=== PATIENT | male | born 1955 | race African-American/Black ===

== ENCOUNTER → 2018-03-05 | Outpatient (CLI) | payer BC, OTHER ==
[2018-03-05 10:25] LABS: ABSOLUTE EOSINOPHILS # (AUTO) 0.1 10^3/uL (0.0-0.6); ABSOLUTE LYMPHOCYTES (AUTO) 1.8 10^3/uL (0.5-4.7); ABSOLUTE MONOCYTES (AUTO) 0.5 10^3/uL (0.1-1.4); ABSOLUTE NEUT (AUTO) 2.8 10^3/uL (1.7-8.2); BASOPHILS % (AUTO) 0.5 % (0-2); EOSINOPHILS % (AUTO) 2.6 % (0-6); HEMATOCRIT 40.3 % (37.9-51.0); HEMOGLOBIN 13.7 g/dL (13.5-17.0); LYMPHOCYTES % (AUTO) 33.7 % (13-45); MEAN CORPUSCULAR HEMOGLOBIN 30.4 pg (27.0-33.4); MEAN CORPUSCULAR HGB CONC 33.9 g/dL (32.0-36.0); MEAN CORPUSCULAR VOLUME 90 fl (80-97); MONOCYTES % (AUTO) 9.5 % (3-13); PLATELET COUNT 238 10^3/uL (150-450); SEGMENTED NEUTROPHILS % (AUTO) 53.7 % (42-78); TOTAL CELLS COUNTED % (AUTO) 100 %; WHITE BLOOD COUNT 5.3 10^3/uL (4.0-10.5)
[2018-03-05 10:43] LABS: ANION GAP 13 (5-19); BLOOD UREA NITROGEN 15 mg/dL (7-20); CALCIUM 9.7 mg/dL (8.4-10.2); CARBON DIOXIDE 25 mmol/L (22-30); CHLORIDE 106 mmol/L (98-107); GLUCOSE 98 mg/dL (75-110); POTASSIUM 4.7 mmol/L (3.6-5.0); SODIUM 143.9 mmol/L (137-145)
== END ==
LOC: OD 08:34
PROVIDERS: ATTEND Urology
DX: Z01.818 Encounter for other preprocedural examination (principal); N40.1 Benign prostatic hyperplasia with lower urinary tract symptoms
CPT/HCPCS: 36415; 80048; 85025

== ENCOUNTER → 2018-03-10 | Outpatient (CLI) | payer BC ==
--- NOTE | 2018-03-10 14:03 | EKG REPORT ---
SEVERITY:- NORMAL ECG - SINUS RHYTHM : Confirmed by: Alexi Villatoro MD 10-Mar-2018 14:02:13
== END ==
LOC: OD 11:55
PROVIDERS: ATTEND Urology
DX: Z01.810 Encounter for preprocedural cardiovascular examination (principal); Z01.818 Encounter for other preprocedural examination; N40.1 Benign prostatic hyperplasia with lower urinary tract symptoms
CPT/HCPCS: 93005; 93010

== ENCOUNTER 2018-03-17 02:12 | Emergency (ER) | payer SELFPAY ==
[2018-03-17] MEDS ORDERED: MORPHINE SULFATE 10 MG/ML INJ IV ONE (02:46)
[2018-03-17] MEDS ORDERED: ONDANSETRON HCL INJ/PF 4 MG/2 ML SDV IV ONE (02:46)
--- NOTE | 2018-03-17 02:52 | ER Document Report ---
ED General - General Mode of Arrival: Ambulatory Information source: Patient TRAVEL OUTSIDE OF THE [place] IN LAST 30 DAYS: No - General Chief Complaint: Urinary Retention Stated Complaint: CATHETER ISSUE Time Seen by Provider: 03/17/18 02:36 Notes: Patient is a 62 year old male with a history of an enlarged prostate and hypertension presents to the emergency department complaining of pain after having a prostate surgery (TURP) on 03/15/2018. at bedside states the patient had TURP performed due to his prostate being chronically enlarged at [facility] by Dr. Cerrato. She also states after the patient's surgery, he had a blood clot in his robetrson catheter and had to stay in the hospital for one day. states she believes that the patient's catheter is clogged once again. Patient is currently taking amlodipine. states that the patient received oxybutynin today. (BUSHRA GONZALEZ) - Related Data Allergies/Adverse Reactions: oxycodone Allergy (Verified 03/17/18 02:17) Past Medical History - General Information source: Patient, Relative - Social History Smoking Status: Never Smoker Cigarette use (# per day): No Chew tobacco use (# tins/day): No Smoking Education Provided: No Frequency of alcohol use: None Family History: Reviewed & Not Pertinent Patient has suicidal ideation: No Patient has homicidal ideation: No - Past Medical History Cardiac Medical History: Reports: Hx Hypertension Renal/ Medical History: Reports: Other - Chronic englarged prostate. TURP procedure performed 03/15/2018. Review of Systems - Review of Systems Constitutional: No symptoms reported EENT: No symptoms reported Cardiovascular: No symptoms reported Respiratory: No symptoms reported Gastrointestinal: No symptoms reported Genitourinary: See HPI Male Genitourinary: No symptoms reported Musculoskeletal: No symptoms reported Skin: No symptoms reported Hematologic/Lymphatic: No symptoms reported Neurological/Psychological: No symptoms reported -: Yes All other systems reviewed and negative Physical Exam - General General appearance: Alert, Other - Appears uncomfortable - HEENT Head: Normocephalic, Atraumatic Eyes: Normal Conjunctiva: Normal Extraocular movements intact: Yes Pupils: PERRL Neck: Normal - Respiratory Respiratory status: No respiratory distress Chest status: Nontender Breath sounds: Normal Chest palpation: Normal - Cardiovascular Rhythm: Regular Heart sounds: Normal auscultation Murmur: No Friction rub: No Gallop: None auscultated - Abdominal Inspection: Normal Distension: Distended bladder Bowel sounds: Normal Tenderness: Tender - Suprapubic region tender to palpation. Organomegaly: No organomegaly - Back Back: Normal - Extremities General upper extremity: Normal ROM General lower extremity: Normal ROM - Neurological Neuro grossly intact: Yes Cognition: Normal Orientation: AAOx4 Gila Coma Scale Eye Opening: Spontaneous Gila Coma Scale Verbal: Oriented Gila Coma Scale Motor: Obeys Commands Hector Coma Scale Total: 15 Speech: Normal - Psychological Associated symptoms: Normal affect, Normal mood - Skin Skin Temperature: Warm Skin Moisture: Dry Skin Color: Normal - Vital signs Vitals: Temp Pulse BP Pulse Ox 99.1 F 99 147/115 H 93 03/17/18 02:21 03/17/18 02:21 03/17/18 02:21 03/17/18 02:21 - Genitourinary Notes: Robertson catheter present with no drainage. (BUSHRA GONZALEZ) Course - Re-evaluation Re-evalutation: 03/17/18 05:34 The Robertson and bladder were irrigated free of clots. Patient was put on continuous irrigation for about 45 minutes, the irrigant remains clear. (ARABELLA MILLS) - Vital Signs Vital signs: Temp Pulse Resp BP Pulse Ox 99.1 F 99 128/78 H 93 03/17/18 02:21 03/17/18 02:21 03/17/18 05:01 03/17/18 05:01 Discharge - Discharge Clinical Impression: Acute urinary retention Condition: Stable Disposition: HOME, SELF-CARE Additional Instructions: Drink plenty of fluids today and tonight to keep the urine flowing and prevent forming clots. Follow-up with your urologist if any problems today. RETURN TO THE EMERGENCY ROOM IF ANY NEW OR WORSENING SYMPTOMS. Scribe Attestation: 03/17/18 05:35 I personally performed the services described in the documentation, reviewed and edited the documentation which was dictated to the scribe in my presence, and it accurately records my words and actions. (ARABELLA MILLS) Scribe Documentation - Scribe Written by Jolene:: Jolene Ann, 03/17/2018 02:55 acting as scribe for :: Desire
[2018-03-17] MEDS ORDERED: FAMOTIDINE INJ/PF 20 MG/2 ML SDV IV ONE (03:02)
[2018-03-17] MEDS ORDERED: DIPHENHYDRAMINE HCL 50 MG/ML VIAL IV ONE (03:02)
[2018-03-17 06:31] VITALS: BP 123/82
== END 2018-03-17 06:32 | disposition home or self-care (01) ==
LOC: ER 02:12
DX: R33.9 Retention of urine, unspecified (principal); T83.098A Other mechanical complication of other urinary catheter, initial encounter; Z98.890 Other specified postprocedural states; Z79.899 Other long term (current) drug therapy; I10 Essential (primary) hypertension
CPT/HCPCS: 99283; 96374; 96375; J1200; J2270; J2405; S0028